=== PATIENT | female | born 2000 | race Caucasian/White ===

== ENCOUNTER 2019-04-13 12:41 | Emergency (ER) | payer SELFPAY ==
[~2019-04-13] VITALS: Ht 172.7 cm; Wt 79.5 kg
[~2019-04-13 12:41] MED LIST: AMOXICILLIN 50500 MG PO
[2019-04-13 13:00] VITALS: BP 128/74; TEMP 98.2
[2019-04-13] MEDS ORDERED: TESSALON PERLE200 MG PO ×2 (14:12)
[2019-04-13 14:40] VITALS: PULSE 90
== END 2019-04-13 14:39 | disposition home or self-care (01) ==
LOC: COL.ER 12:41
PROVIDERS: Physician Assistant
DX: N92.0 Excessive and frequent menstruation with regular cycle (principal); Z90.49 Acquired absence of other specified parts of digestive tract